=== PATIENT | male | born 1995 | race Caucasian/White ===

== ENCOUNTER → 2022-11-30 | Outpatient (CLI) | payer OTHER, SELFPAY ==
--- NOTE | 2022-11-30 10:34 | STEWCON_ITS ---
Reason For Study: Tachycardia Stress Results Protocol: Edis Protocol WITH DEFINITY Maximum Predicted HR: 192 bpm Target HR: 163 bpm % Maximum Predicted HR: 102 % DurationHeart Rate Stage (mm:ss) (bpm) BP Comment Baseline 100 126/82No Chest Pain; 4 ML Diluted Definity Edis Protocol Stage I 3:00 115 124/78No Chest Pain Edis Protocol Stage II 3:00 141 130/84No Chest Pain Edis Protocol Stage III 3:00 155 132/80No Chest Pain Edis Protocol Stage IV 3:00 190 142/78No Chest Pain Edis Protocol Stage V 1:00 196 / No Chest Pain Recovery 117 122/72No Chest Pain Stress Duration: 13:00 mm:ss Maximum Stress HR: 196 bpm METS: 17 Baseline Echocardiogram Findings Stress Echo Wall motion Data Resting WM Intermediate WM Stress WM ECHO/Stress Test Echo W/Contrast Interpretation Summary Exercise stress echocardiogram with Definity enhancement. Resting EKG demonstrates sinus rhythm with a rate of 83 bpm normal intervals ar e noted resting blood pressure is 126/82 mmHg. The patient exercised according to the regular Edis p rotocol for total duration of 13 minutes completing 1 minute into stage V of the Edis protocol. The maximum heart rate attained was 196 bpm which was 102% of max impacted heart rate the maximum workload was 17.2 metabolic equivalents. At rest there were no ST or T wave changes noted to sugg est ischemia and at peak exercise upsloping ST changes were noted less than 1 mm which did not meet the criteria for ischemia. No clinical angina was noted the test was terminated due to the targe t heart rate being achieved. The peak blood pressure was 142/78 mmHg which was an excellent blood pressure response to exercise the rate-pressure product was 26,980. No arrhythmias were present. Stress echocardiogram. Stress echocardiogram was performed with Definity enhancement with resting echo cardiogram demonstrated ejection fraction of 55%. At peak exercise there was thickening of all mixon reduction of cavity size improvement of ejection fraction to approximately 70% with no wa ll motion abnormalities present. Conclusion: Normal exercise stress EKG demonstrating no evidence of ischemia or arrhythmias . Good functional aerobic capacity. Normal heart rate response to exercise. Normal resting and stress echocardiogram. Ordering Physician: Carlos Kilpatrick Referring Physician: Carlos Kilpatrick Performed By: Kadie Moya, LANDON, RVT
== END | disposition home or self-care (01) ==
PROVIDERS: PCP Family Medicine; Referring Provider Internal Medicine Cardiovascular Disease; Visit Provider Internal Medicine Cardiovascular Disease
DX: R00.0 Tachycardia, unspecified (principal)
CPT/HCPCS: 93017; 93350; Q9957; A4216; C8928

== ENCOUNTER → 2024-05-23 | Outpatient (CLI) | payer OTHER, SELFPAY ==
--- NOTE | 2024-05-23 13:00 | RAD_ITS ---
EXAM: XR ABDOMEN, 2 VIEWS CLINICAL INDICATION: ABD PAIN, CONSTIPATION TECHNIQUE: Frontal view of the abdomen/pelvis with upright view of the abdomen. COMPARISON: No relevant prior studies available. FINDINGS: LOWER THORAX: No acute pathology. INTRAPERITONEAL SPACE: No free air. GASTROINTESTINAL TRACT: Unremarkable. Non-obstructive. No bowel or stomach distention. ORGANS: Unremarkable as visualized. No organomegaly. No abnormal calcifications. BONES/JOINTS: No acute pathology. SOFT TISSUES: No acute pathology. RAD/Abd Inc Decub and/or Erect IMPRESSION: Unremarkable abdominal series. Electronically Signed: Kian Carlisle MD at 14:27 EST ,
== END | disposition home or self-care (01) ==
PROVIDERS: PCP Family Medicine; Referring Provider Internal Medicine Gastroenterology; Visit Provider Internal Medicine Gastroenterology
DX: R10.9 Unspecified abdominal pain (principal); K59.00 Constipation, unspecified
CPT/HCPCS: 74019